=== PATIENT | male | born 1950 | race American Indian/Alaskan Native ===

== ENCOUNTER 2021-07-31 07:14 | Outpatient (CLI) | payer OTHER ==
--- NOTE | 2021-07-31 10:17 | Nuclear Medicine Report ---
HIDA SCAN INDICATION: R10.11 RUQ PAIN TECHNIQUE: 5.5 mCi of Tc-99m mebrofenin was injected IV per protocol. The patient drank 8 oz of Ens ure. Multiple planar images in the region of the liver were then obtained. COMPARISON: No comparison studies at this facility. FINDINGS: There is prompt radiotracer uptake identified within the liver. The gallbladder was visuali zed at 10 min. There is normal GI excretion. The gallbladder ejection fraction was measured at 31 % (35% or greater is considered normal). The patient reported the same pain and cramps during ingestion of Ensure. IMPRESSION: No evidence of biliary obstruction. Slightly decreased gallbladder ejection fraction measuring 31% suggesting mild biliary dyskinesia. Signer Name: Henrique Rodriguez Jr, MD Signed: 07/31/2021 10:13 AM Workstation Name: [id number]
== END 2021-07-31 07:15 | disposition home or self-care (01) ==
LOC: NM 07:14
PROVIDERS: ATTEND Family Medicine
DX: R10.11 Right upper quadrant pain (principal)
CPT/HCPCS: 78227; A9537